=== PATIENT | male | born 1975 | race Caucasian/White ===

== ENCOUNTER 2025-02-11 13:00 | Observation (INO) | payer OTHER ==
[2025-02-11] MEDS ORDERED: Ondansetron PF 4 MG/2 ML Vial ONE (13:46)
[2025-02-11 13:56] LABS: #Basophils 0.06 10x3/uL (0.0-0.2); #Eosinophils 0.39 10x3/uL (0.0-0.5); #Monocytes 0.84 10x3/uL (0.0-1.1); #Neutrophils 4.33 10x3/uL (1.5-8.4); %Basophils 0.9 % (0.0-2.0); %Eosinophils 5.6 % (0.0-6.0); %Lymphocytes 19.5 % (18.0-47.0); %Monocytes 12.0 % (0.0-10.0); %Neutrophils 61.7 % (40.0-75.0); Hematocrit 31.8 % (38.8-50.0); Hemoglobin 10.0 g/dL (13.5-17.5); Mean Corpuscular Hemoglobin 28.2 pg (27.0-33.0); Mean Corpuscular Volume 89.6 fL (81.2-95.1); Platelet Count 491 10x3/uL (150-450); Red Blood Cell (RBC) Count 3.55 10x6/uL (4.32-5.72); White Blood Cell (WBC) Count 7.01 10x3/uL (3.5-10.5)
[2025-02-11] MEDS ORDERED: Aspirin Chewable 81 MG TAB ONE (14:09)
[2025-02-11 14:25] LABS: ALT (SGPT) 19 U/L (Less than 45); AST (SGOT) 25 U/L (11-34); Albumin 4.6 g/dL (3.1-4.5); Alkaline Phosphatase 79 U/L (40-110); Anion Gap 13 mmol/L (10-20); BUN (Urea Nitrogen) 27 mg/dL (8.9-20.6); Bilirubin, Total 0.5 mg/dL (0.3-1.2); Calc. Creatinine Clearance 0 mL/min (70-130); Calcium 9.5 mg/dL (7.8-10.44); Carbon Dioxide 22 mmol/L (22-29); Chloride 110 mmol/L (98-107); Globulin 3.1 g/dL (2.4-3.5); Glucose 100 mg/dL (70-105); Potassium 4.1 mmol/L (3.5-5.1); Sodium 141 mmol/L (136-145)
[2025-02-11 14:28] LABS: Troponin I 0.259 ng/mL (< 0.028)
[2025-02-11] MEDS ORDERED: Nitroglycerin 2% Ointment 1 INCH/1 GM Packet ONE (15:03)
[2025-02-11] MEDS ORDERED: Senokot S 8.6-50 MG TAB PO PRN (15:50)
[2025-02-11] MEDS ORDERED: Acetaminophen 325 MG TAB PO PRN ×3 (15:50→23:30)
[2025-02-11] MEDS ORDERED: Nitroglycerin 0.4 MG TAB (25 Tab Bottle) SL PRN (15:50)
[2025-02-11] MEDS ORDERED: Melatonin 3 MG TAB PO PRN (15:50)
[2025-02-11] MEDS ORDERED: Ondansetron PF 4 MG/2 ML Vial IVP PRN (15:50)
[2025-02-11 16:38] LABS: Troponin I 0.261 ng/mL (< 0.028)
[2025-02-11] MEDS ORDERED: oxyCODONE 5 MG TAB PO PRN (17:10)
[2025-02-11] MEDS: HYDROcodone/Acetaminophen 10/325 mg Tablet PO SCH (17:27)
[2025-02-11 17:57] VITALS: BMI 30.4
[2025-02-11 19:44] LABS: Troponin I 0.243 ng/mL (< 0.028)
[2025-02-11] MEDS: Methocarbamol 500 MG TAB PO SCH (20:22)
[2025-02-11] MEDS: Apixaban 5 MG TAB PO SCH (20:22)
[2025-02-11] MEDS: Mirtazapine 15 MG TAB PO SCH (20:23)
[2025-02-12] MEDS: oxyCODONE 5 MG TAB PO PRN (05:05)
[2025-02-12 05:08] LABS: #Basophils 0.04 10x3/uL (0.0-0.2); #Eosinophils 0.58 10x3/uL (0.0-0.5); #Monocytes 1.18 10x3/uL (0.0-1.1); #Neutrophils 2.76 10x3/uL (1.5-8.4); %Basophils 0.7 % (0.0-2.0); %Eosinophils 9.7 % (0.0-6.0); %Lymphocytes 23.5 % (18.0-47.0); %Monocytes 19.8 % (0.0-10.0); %Neutrophils 46.1 % (40.0-75.0); Hematocrit 28.1 % (38.8-50.0); Hemoglobin 8.9 g/dL (13.5-17.5); Mean Corpuscular Hemoglobin 28.3 pg (27.0-33.0); Mean Corpuscular Volume 89.5 fL (81.2-95.1); Platelet Count 436 10x3/uL (150-450); Red Blood Cell (RBC) Count 3.14 10x6/uL (4.32-5.72); White Blood Cell (WBC) Count 5.97 10x3/uL (3.5-10.5)
[2025-02-12 05:22] LABS: Anion Gap 11 mmol/L (10-20); BUN (Urea Nitrogen) 26 mg/dL (8.9-20.6); Calc. Creatinine Clearance 72 mL/min (70-130); Calcium 8.6 mg/dL (7.8-10.44); Carbon Dioxide 25 mmol/L (22-29); Chloride 108 mmol/L (98-107); Glucose 108 mg/dL (70-105); Potassium 4.1 mmol/L (3.5-5.1); Sodium 140 mmol/L (136-145)
[2025-02-12] MEDS ORDERED: Aspirin Chewable 81 MG TAB PO SCH (09:00)
[2025-02-12] MEDS ORDERED: Enoxaparin 80 MG (0.8 mL) SYRINGE SC SCH (09:17)
[2025-02-12] MEDS: Metoprolol Succinate XL 25 MG ER.TAB PO SCH (09:39)
[2025-02-12] MEDS: NIFEdipine XL 30 MG ER.TAB PO SCH (09:39)
[2025-02-12] MEDS: Isosorbide Mononitrate 30 MG ER.TAB.S PO SCH (09:39)
[2025-02-12] MEDS: Aspirin 81 mg Enteric Coated Tablet PO SCH (09:40)
[2025-02-12] MEDS: Enoxaparin 100 MG (1 mL) SYRINGE SC SCH (09:55)
[2025-02-12 14:02] LABS: Glucose, Urine (Dipstick) Normal (Negative); Leukocyte Negative (Negative); Protein, Urine (Dipstick) 15 mg/dl (Neg-Trace); Specific Gravity, Urine 1.010 (1.005-1.030)
[2025-02-12 14:34] LABS: Bacteria/HPF Rare-Few HPF (None Seen)
[2025-02-12] MEDS ORDERED: Lactulose 20 GM (30 mL) UDCUP PO SCH (17:00)
[2025-02-12 18:06] VITALS: BP 116/72; TEMP 98.2
[2025-02-12] MEDS ORDERED: Apixaban 5 MG TAB PO SCH (21:00)
[2025-02-12] MEDS ORDERED: Enoxaparin 100 MG (1 mL) SYRINGE SC SCH (21:00)
== END 2025-02-12 18:08 | disposition home or self-care (01) ==
LOC: CSHERS 13:00 → CSHERHOLD 15:30 → CSHTELE 16:44
PROVIDERS: ADMIT Hospitalist; ATTEND Family Medicine
PROC: B24BZZZ Ultrasonography of Heart with Aorta (ICD-10-PCS; principal; 2025-02-12)
DX: I21.4 Non-ST elevation (NSTEMI) myocardial infarction (principal); I25.10 Atherosclerotic heart disease of native coronary artery without angina pectoris; I11.0 Hypertensive heart disease with heart failure; I50.32 Chronic diastolic (congestive) heart failure; E78.5 Hyperlipidemia, unspecified; Z95.5 Presence of coronary angioplasty implant and graft; Z86.711 Personal history of pulmonary embolism; Z90.49 Acquired absence of other specified parts of digestive tract; Z88.6 Allergy status to analgesic agent; Z88.0 Allergy status to penicillin; Z79.01 Long term (current) use of anticoagulants; Z79.02 Long term (current) use of antithrombotics/antiplatelets; Z79.82 Long term (current) use of aspirin; Z79.899 Other long term (current) drug therapy
CPT/HCPCS: 36415; 36416; 71045; 80048; 80053; 80306; 80307; 81001; 83605; 83690; 83735; 83880; 84484; 85025; 85379; 85610; 85730; 93005; 93306; 94760; 96374; 96375; 96376; G0378; J2270; J2405